=== PATIENT | female | born 1955 | race Caucasian/White ===

== ENCOUNTER 2024-05-07 11:50 | Outpatient (CLI) | payer MEDICARE, OTHER, SELFPAY ==
--- NOTE | ~2024-05-07 | XR_ITS ---
XR abdomen/kub 1V Ordering provider: Stephan Henson MD History: . BI kidney stone . Comparison: None. FINDINGS: BOWEL: Nonobstructive bowel gas pattern. ORGANOMEGALY: None. SIGNIFICANT PATHOLOGIC CALCIFICATIONS: Possible left kidney stones. Fecal material and gases are proj ected over the left kidney. OTHER: No free air is seen under the diaphragm. Postoperative changes in the lower lumbar area with spinal stimulator. Bilateral sacroiliacs. Pubic s ymphysitis. IMPRESSION: NO ACUTE ABDOMINAL FINDINGS. Possible left kidney stones. If clinically warranted noncontrast CT is advised. Reviewed, dictated and finalized at location A.
--- OUTSIDE RECORDS SUMMARY | 2024-05-07 13:44 | XMS_ITS | Encounter Summary ---
Author Organization [facility] Facility Care Team Providers Care Fish Icer Name Role Phone Art Schofield DO Primary Care Provider Tristen Bell MD Unavailable [phone] Art Schofield DO Primary Care Provider Stephan Henson MD Unavailable [phone] Simon Sampson DO Unavailable [phone] Encounter Details Date Type Department Care Team (Latest Contact Info) Description 03/13/2017 Orders Only [facility] CLINCONV ProviderArlene MD [address] [place], [place] [id number] Social History Tobacco Use Types Packs/Day Years Used Date Smoking Tobacco: Never Assessed Comments Unknown Sex and Gender Information Value Date Recorded Sex Assigned at Not on file Legal Sex Female 7:15 PM MAIL LIST PROCESSOR Gender Identity Female 12/01/2020 8:26 PM CDT Sexual Orientation Straight 12/01/2020 8: 26 PM CDT documented as of this encounter Plan of Treatment Not on file documented as of this encounter Procedures Procedure Name Priority Date/Time Associated Diagnosis Comments SCAN - LABS 03/13/2017 12:00 AM MAIL LIST PROCESSOR documented in this encounter Results * SCAN - LABS (03/13/2017 12:00 AM MAIL LIST PROCESSOR) Narrative 03/13/2017 12:00 AM MAIL LIST PROCESSOR Ordered by an unspecified provider. Historical Provider Final Res ult documented in this encounter Visit Diagnoses Not on filedocumented in this encounter Additional Health Concerns Infection Onset Date Last Indicated Resolved Time C. difficile Comment:Infection from 201510/13/2015 10/12/2015 04/10/2021 8 :04 AM MAIL LIST PROCESSOR documented as of this encounter Care Teams Fish Icer Relationship Specialty Start Date End Date Art Schofield DO PCP - General Family Practice 10/30/18 04/08/21 Art Schofield DO PCP - General Family Practice 04/09/21 Tristen Bell MD [address] [facility] [address] [address] [address] Supervisor Forming And Tempering Cardiology 10/31/18 [place] [address] [address] [place] [address] Consulting Physician Urology 05/07/23 Simon Sampson DO [address] [facility] [address] [address] [place] [address] Consulting Physician Orthopedic Surgery 05/14/23 documented as of this encounter
--- OUTSIDE RECORDS SUMMARY | 2024-05-07 13:44 | XMS_ITS | Encounter Summary ---
Author Organization [facility] Facility Care Team Providers Care County Attorney Name Role Phone Art Schofield DO Primary Care Provider Tristen Bell MD Unavailable [phone] Art Schofield DO Primary Care Provider Stephan Henson MD Unavailable [phone] Simon Sampson DO Unavailable [phone] Encounter Details Date Type Department Care Team (Latest Contact Info) Description 08/12/2017 Orders Only [facility] CLINCONV ProviderArlene MD [address] [place], [place] [id number] Social History Tobacco Use Types Packs/Day Years Used Date Smoking Tobacco: Never Assessed Comments Unknown Sex and Gender Information Value Date Recorded Sex Assigned at Not on file Legal Sex Female 7:15 PM SILK WASHING MACHINE OPERATOR Gender Identity Female 12/01/2020 8:26 PM CDT Sexual Orientation Straight 12/01/2020 8: 26 PM CDT documented as of this encounter Plan of Treatment Not on file documented as of this encounter Procedures Procedure Name Priority Date/Time Associated Diagnosis Comments PROCEDURE - RESULT 08/12/2017 12 :00 AM CDT documented in this encounter Results * PROCEDURE - RESULT (08/12/2017 12:00 AM CDT) Narrative 08/12/2017 12:00 AM CDT Ordered by an unspecified provider. Historical Provider Final Res ult documented in this encounter Visit Diagnoses Not on filedocumented in this encounter Additional Health Concerns Infection Onset Date Last Indicated Resolved Time C. difficile Comment:Infection from 201510/13/2015 10/12/2015 04/10/2021 8 :04 AM SILK WASHING MACHINE OPERATOR documented as of this encounter Care Teams County Attorney Relationship Specialty Start Date End Date Art Schofield DO PCP - General Family Practice 10/30/18 04/08/21 rAt Schofield DO PCP - General Family Practice 04/09/21 Tristen Bell MD [address] [facility] [address] [address] [address] Sawmill Tally Clerk Cardiology 10/31/18 [place] [address] [address] [place] [address] Consulting Physician Urology 05/07/23 Simon Sampson DO [address] [facility] [address] [address] [place] [address] Consulting Physician Orthopedic Surgery 05/14/23 documented as of this encounter
--- OUTSIDE RECORDS SUMMARY | 2024-05-07 13:44 | XMS_ITS | Encounter Summary ---
Author Organization [facility] Address [facility] [place] [address] Care Team Providers Care Enrollment Management Manager Name Role Phone Araceli Schofield Primary Care Provider [phone] Guillermo Jarvis MD Unavailable Arabella Alvarez MD, Ramon Unavailable [phone] Miri Howe PA-C Unavailable [phone] Encounter Details Date Type Department Care Team (Late st Contact Info) Description 03/02/2021 Prep for Procedure [facility] Pre-Admission Testing [place], [place] [id number] Americo Jarvis MD [address] [facility]. [place], [place] [id number] Social History Tobacco Use Types Packs/Day Years Used Date Smoking Tobacco: Never Smokeless Tobacco: Never Alcohol Use Standard Drinks/Week Comments No 0 (1 standard drink = 0.6 oz pur e alcohol) AUDIT-C Answer Date Recorded Frequency of Alcohol Consumption Never 04/22/2018 Average Number of Drinks Not on file 019 Frequency of Binge Drinking Not on file 03/29 PHQ-2 Answer Date Recorded PHQ-2 Score - If the patient scores above 3, please move on to questions 3-9 0 07/13/2020 Comments No Sex and Gender Information Value Date Recorded Sex Assigned at Female 03/13/2024 11:19 AM CRM SPECIALIST Legal Sex Female 5:37 PM CDT Gender Identity Female 03/01/2021 11:51 AM CRM SPECIALIST Sexual Orientation Straight 03/01/2021 11 :51 AM CRM SPECIALIST Occupation Industry Job Start Date Job End Date on disability Not on file Not on file Not on file COVID-19 Exposure Response Date Recorded In the last month, have you been in contact with someone who was confirmed or suspected to have Coronavirus / COVID-19? No / Unsure 03/02/2021 8:57 AM CRM SPECIALIST documented as of this encounter H&P Notes * Americo Jarvis MD - 03/02/2021 11:59 PM CST Attending Provider: No att. providers found PCP: ARACELI SCHOFIELD DO Juana Collier is an 65-year-old HPI: Pelvic organ prolapse. NO kati Past Medical History: Diagnosis Date ??? Angina at rest ([facility]) reports that this is not a current problem (recorded 2020) ??? Bursitis of both hips ??? C. difficile diarrhea 6 years ago (recorded 2020) ??? Coronary artery disease ??? DDD (degenerative disc disease), lumbar ??? Diverticulitis ??? Fibromyalgia ??? Heart palpitations (no issues with this for several years) ??? History of kidney stones ??? Hypertension ??? IBS (irritable bowel syndrome) ??? Reflux esophagitis ??? Ruptured disc, cervical ??? Spinal stenosis Allergies: Allergies Allergen Reactions ??? Darvon [Propoxyphene] Anaphylaxis ??? Penicillins Hives and Shortness of Breath Social History Tobacco Use ??? Smoking status: Never Smoker ??? Smokeless tobacco: Never Used Substance Use Topics ??? Alcohol use: No Past Surgical History: Procedure Laterality Date ??? CARPAL TUNNEL RELEASE Bilateral ??? COLONOSCOPY 2009 Dr Mauircio, history of polyps ??? COLONOSCOPY N/A 11/25/2019 colonoscopy with random colon biopsies AND CECAL POLYPECTOMYx2 VIA COLD JUMBO FORCEPS, ASCENDING COLON POLYP x2 VIA HOT SNARE, RECTAL POLYP performed by Tang Noland MD at [facility] ??? HC KIT BLADDER SLING/SUSPENSION ??? HEMORRHOIDECTOMY ??? HYSTERECTOMY ??? LUMBAR SPINAL FUSION CPG ??? NEUROSTIMULATOR PULSE GENERATOR ANALYSIS ??? SPINAL FUSION 2000 ??? SPINAL FUSION,ANT,EA ADNL LEVEL 2018 Family History Problem Relation Name Age of Onset ??? Breast Cancer Other 40 ??? Diabetes Mother ??? Cancer Father colon lung ??? Cancer Brother colon ??? Cancer Brother colon and lung ??? Cancer Brother bladder, prostate ca Travel Exposure: Current Outpatient Medications on File Prior to Visit Medication Sig ??? amlodipine 10 MG tablet Take 10 mg by mouth daily. ??? aspirin EC (ASPIRIN) 81 MG EC tablet Take 81 mg by mouth daily. ??? atorvastatin 40 MG tablet Take 40 mg by mouth daily. ??? azithromycin 250 MG tablet Take 2 tablets po on day 1 then take 1 tablet po daily on days 2-5 ??? carvedilol 25 MG tablet Take 25 mg by mouth 2 (two) times daily. ??? hydrochlorothiazide 25 MG tablet Take 25 mg by mouth daily. ??? LISINOPRIL 20 MG tablet TAKE 1 TABLET(20 MG) BY MOUTH DAILY ??? loratadine 10 MG tablet Take 10 mg by mouth daily. ??? melatonin 5 MG tablet Take 2 tablets by mouth nightly as needed. ??? MONTELUKAST 10 MG tablet TAKE 1 TABLET(10 MG) BY MOUTH EVERY NIGHT AT BEDTIME ??? omeprazole 40 MG capsule Take 40 mg by mouth daily. ??? potassium chloride CR 20 MEQ tablet Take 20 mEq by mouth daily. ??? TIZANIDINE 4 MG tablet TAKE 2 TABLETS BY MOUTH EVERY 8 HOURS ??? traMADol 50 MG tablet Indications: Chronic Pain TAKE 1 TABLET BY MOUTH THREE TIMES DAILY FOR CHRONIC PAIN (Patient taking differently: Take 50 mg by mouth 3 (three) times daily as needed for Pain. Indications: Chronic Pain TAKE 1 TABLET BY MOUTH THREE TIMES DAILY FOR CHRONIC PAIN) ??? Vitamin D, Cholecalciferol, 1000 units Cap Take by mouth daily. No current facility-administered medications on file prior to visit. There were no vitals taken for this visit. ROS neg Physical Exam [place] -2 NO cystocele Fixed urethra Rectocele just beyond introitus Assessment: Vag vault prolapse, rectocele Plan: sacdrospinous ligament fixation/rectocele repiar AMERICO JARVIS MD 02/25/2021 SPECIALIST documented in this encounter Plan of Treatment Not on file documented as of this encounter Results * (ABNORMAL) URINALYSIS WI REFLEX TO CULTURE (02/27/2021 10:56 AM CRM SPECIALIST) SPECIMEN TYPE URINE CLEAN CATCH 02/27/2021 10:56 AM [facility] COLOR (U) YELLOW 02/27/2021 12:28 PM [facility] TRANSPARENCY CLEAR 02/27/2021 12:28 PM [facility] SPECIFIC GRAVITY (U) 1.020 1.001 - 1.030 02/27/2021 12:28 PM [facility] U PH 6.5 5.0 - 9.0 02/27/2021 12:28 PM [facility] LEUKOCYTES (U) 25(A) NEGATIVE 02/27/2021 12:28 PM [facility] NITRITES NEGATIVE NEGATIVE 02/27/2021 12:28 PM [facility] PROTEIN (U) 10 <30 MG/DL 02/27/2021 12:28 PM [facility] URINE GLUCOSE NORMAL NORMAL MG/DL 02/27/2021 12:28 PM [facility] KETONES MG/DL (U) NEGATIVE NEGATIVE MG/DL 02/27/2021 12:28 PM [facility] UROBILINOGEN NORMAL NORMAL MG/DL 02/27/2021 12:28 PM [facility] BILIRUBIN (U) NEGATIVE NEGATIVE MG/DL 02/27/2021 12:28 PM [facility] BLOOD (U) NEGATIVE NEGATIVE 02/27/2021 12:28 PM [facility] CULTURE & SENSITIVITY INDICATED? SPECIMEN SETUP FOR CULTURE 02/27/2021 12:28 PM [facility] MUCUS MANY /LPF 02/27/2021 12:28 PM CRM SPECIALIST [facility] WBC/HPF 2 <6 /HPF 02/27/2021 12:28 PM CRM SPECIALIST [facility] RBC/HPF <1 <6 /HPF 02/27/2021 12:28 PM CRM SPECIALIST [facility] SQUAMOUS EPITHELIALS RARE /HPF 02/27/2021 12:28 PM CRM SPECIALIST [facility] URINE SPECIMEN OBTAINED BY CLEAN CATCH PROCEDURE / Unknown 02/27/2021 10:56 AM CRM SPECIALIST us Americo Jarvis MD URINE ORDERABLES Final Resul t [facility] [address] [place] [address], documented in this encounter Visit Diagnoses Diagnosis Preoperative testing- Primary Preoperative examination, unspecified Rectocele 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
--- OUTSIDE RECORDS SUMMARY | 2024-05-07 13:44 | XMS_ITS | Encounter Summary ---
Author Organization [facility] Facility Care Team Providers Care Electrical Mechanical Technician Name Role Phone Art Schofield DO Primary Care Provider Tristen Bell MD Unavailable [phone] Art Schofield DO Primary Care Provider Stephan Hneson MD Unavailable [phone] Simon Sampson DO Unavailable [phone] Encounter Details Date Type Department Care Team (Latest Contact Info) Description 03/10/2018 Orders Only [facility] CLINCONV ProviderArlene MD [address] [place], [place] [phone] Social History Tobacco Use Types Packs/Day Years Used Date Smoking Tobacco: Never Assessed Comments Unknown Sex and Gender Information Value Date Recorded Sex Assigned at Not on file Legal Sex Female 7:15 PM CNA PER DIEM Gender Identity Female 12/01/2020 8:26 PM CDT Sexual Orientation Straight 12/01/2020 8: 26 PM CDT documented as of this encounter Plan of Treatment Not on file documented as of this encounter Procedures Procedure Name Priority Date/Time Associated Diagnosis Comments SCAN - LABS 03/19/2018 12:00 AM CNA PER DIEM documented in this encounter Results * SCAN - LABS (03/19/2018 12:00 AM CNA PER DIEM) Narrative 03/19/2018 12:00 AM CNA PER DIEM Ordered by an unspecified provider. Historical Provider Final Res ult documented in this encounter Visit Diagnoses Not on filedocumented in this encounter Additional Health Concerns Infection Onset Date Last Indicated Resolved Time C. difficile Comment:Infection from 201510/13/2015 10/12/2015 04/10/2021 8 :04 AM CNA PER DIEM documented as of this encounter Care Teams Electrical Mechanical Technician Relationship Specialty Start Date End Date Art Schofield DO PCP - General Family Practice 10/30/18 04/08/21 Art Schofield DO PCP - General Family Practice 04/09/21 Tristen Bell MD [address] [facility] [address] [address] Chick Grader Cardiology 10/31/18 [place] [address] [address] [place] [address] Consulting Physician Urology 05/07/23 Simon Sampson DO [address] [facility] [address] [address] [place] [address] Consulting Physician Orthopedic Surgery 05/14/23 documented as of this encounter
--- OUTSIDE RECORDS SUMMARY | 2024-05-07 13:44 | XMS_ITS | Encounter Summary ---
Author Organization [facility] Facility Care Team Providers Care Community Health Nurse Staff Name Role Phone Art Schofield DO Primary Care Provider Tristen Bell MD Unavailable [phone] Art Schofield DO Primary Care Provider Stephan Henson MD Unavailable [phone] Simon Sampson DO Unavailable [phone] Encounter Details Date Type Department Care Team (Latest Contact Info) Description 04/10/2018 Orders Only [facility] CLINCONV ProviderArlene MD [address] [place], [place] [phone] Social History Tobacco Use Types Packs/Day Years Used Date Smoking Tobacco: Never Assessed Comments Unknown Sex and Gender Information Value Date Recorded Sex Assigned at Not on file Legal Sex Female 7:15 PM TEACHER PRESCHOOL Gender Identity Female 12/01/2020 8:26 PM CDT Sexual Orientation Straight 12/01/2020 8: 26 PM CDT documented as of this encounter Plan of Treatment Not on file documented as of this encounter Procedures Procedure Name Priority Date/Time Associated Diagnosis Comments SCAN - LABS 04/18/2018 12:00 AM TEACHER PRESCHOOL documented in this encounter Results * SCAN - LABS (04/18/2018 12:00 AM TEACHER PRESCHOOL) Narrative 04/18/2018 12:00 AM TEACHER PRESCHOOL Ordered by an unspecified provider. Historical Provider Final Res ult documented in this encounter Visit Diagnoses Not on filedocumented in this encounter Additional Health Concerns Infection Onset Date Last Indicated Resolved Time C. difficile Comment:Infection from 201510/13/2015 10/12/2015 04/10/2021 8 :04 AM TEACHER PRESCHOOL documented as of this encounter Care Teams Community Health Nurse Staff Relationship Specialty Start Date End Date Art Schofield DO PCP - General Family Practice 10/30/18 04/08/21 Art Schofield DO PCP - General Family Practice 04/09/21 Tristen Bell MD [address] [facility] [address] [address] Cheese Supervisor Cardiology 10/31/18 [place] [address] [place] [address] Consulting Physician Urology 05/07/23 Simon Sampson DO [address] [facility] [address] [address] [place] [address] Consulting Physician Orthopedic Surgery 05/14/23 documented as of this encounter
--- OUTSIDE RECORDS SUMMARY | 2024-05-07 13:44 | XMS_ITS | Encounter Summary ---
Author Organization [facility] Facility Care Team Providers Care Lug Breaker And Wire Puller Name Role Phone Art Schofield DO Primary Care Provider Tristen Bell MD Unavailable [phone] Art Schofield DO Primary Care Provider Stephan Henson MD Unavailable [phone] Simon Sampson DO Unavailable [phone] Encounter Details Date Type Department Care Team (Latest Contact Info) Description 03/19/2018 Orders Only [facility] CLINCONV ProviderArlene MD [address] [place], [place] [phone] Social History Tobacco Use Types Packs/Day Years Used Date Smoking Tobacco: Never Assessed Comments Unknown Sex and Gender Information Value Date Recorded Sex Assigned at Not on file Legal Sex Female 7:15 PM AZURE ARCHITECT Gender Identity Female 12/01/2020 8:26 PM CDT Sexual Orientation Straight 12/01/2020 8: 26 PM CDT documented as of this encounter Plan of Treatment Not on file documented as of this encounter Procedures Procedure Name Priority Date/Time Associated Diagnosis Comments SCAN - LABS 03/19/2018 12:00 AM AZURE ARCHITECT documented in this encounter Results * SCAN - LABS (03/19/2018 12:00 AM AZURE ARCHITECT) Narrative 03/19/2018 12:00 AM AZURE ARCHITECT Ordered by an unspecified provider. Historical Provider Final Res ult documented in this encounter Visit Diagnoses Not on filedocumented in this encounter Additional Health Concerns Infection Onset Date Last Indicated Resolved Time C. difficile Comment:Infection from 201510/13/2015 10/12/2015 04/10/2021 8 :04 AM AZURE ARCHITECT documented as of this encounter Care Teams Lug Breaker And Wire Puller Relationship Specialty Start Date End Date Art Schofield DO PCP - General Family Practice 10/30/18 04/08/21 Art Schofield DO PCP - General Family Practice 04/09/21 Tristen Bell MD [address] [facility] [address] [address] [address] Underwater Welder Cardiology 10/31/18 [place] [address] [place] [address] Consulting Physician Urology 05/07/23 Simon Sampson DO [address] [facility] [address] [address] [place] [address] Consulting Physician Orthopedic Surgery 05/14/23 documented as of this encounter
--- OUTSIDE RECORDS SUMMARY | 2024-05-07 13:44 | XMS_ITS | Encounter Summary ---
Author Organization [facility] Address [address] [place] [address] Care Team Providers Care Disk Grinder Name Role Phone Millard, Art Alegre DO Primary Care Provider [phone] Guillermo Henson MD Unavailable Arablela Alvarez MD, Ramon Unavailable [phone] Miri Howe PA-C Unavailable [phone] Encounter Details Date Type Department Care Team (Late st Contact Info) Description 11/22/2019 Prep for Procedure [facility] [place], [place] [address] Tang Noland MD [address] [id number] Social History Tobacco Use Types Packs/Day Years [...] please move on to questions 3-9 0 11/11/2019 Comments No Sex and Gender Information Value Date Recorded Sex Assigned at Female 03/13/2024 11:19 AM RETAIL LEADER Legal Sex Female 5:37 PM CDT Gender Identity Female 03/01/2021 11:51 AM RETAIL LEADER Sexual Orientation Straight 03/01/2021 11 :51 AM RETAIL LEADER Occupation Industry Job Start Date Job End Date on disability Not on file Not on file Not on file COVID-19 Exposure Response Date Recorded In the last month, have you been in contact with someone who was confirmed or suspected to have Coronavirus / COVID-19? No / Unsure 11/25/2019 12:59 PM CDT documented as of this encounter Plan of Treatment Not on file documented as of this encounter Results * PRE-SURGICAL/PRE-PROCEDURE CORONAVIRUS (COVID 19) (11/22/2019 10:17 AM CDT) CORONAVIRUS SARS COV 2 PCR (RESP) NOT DETECTED NOT DETECTED 11/23/2019 8:35 PM CDT [facility] Comment: A Not Detected (negative) test result for this test means that SARS- CoV-2 RNA was not present in the specimen above the limit of detection. A negative result does not rule out the possibility of COVID-19 and should not be used as the sole basis for treatment or patient management decisions. If COVID-19 is still suspected, based on exposure history together with other clinical findings, re-testing should be considered in consultation with public health authorities. Laboratory test results should always be considered in the context of clinical observations and epidemiological data in making a final diagnosis and patient management decisions. Please review the Fact Sheets and FDA authorized labeling available for health care providers and patients using the following websites: https://www.[employer].com/home/Covid-19/HCP/[facility]/fact- sheet.html https://www.[employer].com/home/Covid-19/Patients/ [facility]/fact-sheet.html This test has been authorized by the FDA under an Emergency Use Authorization (EUA) for use by authorized laboratories. Due to the current public health emergency, [facility] is receiving a high volume of samples from a wide variety of swabs and media for COVID-19 testing. In order to serve patients during this public health crisis, samples from appropriate clinical sources are being tested. Negative test results derived from specimens received in non-commercially manufactured viral collection and transport media, or in media and sample collection kits not yet authorized by FDA for COVID-19 testing should be cautiously evaluated and the patient potentially subjected to extra precautions such as additional clinical monitoring, including collection of an additional specimen. Methodology: Nucleic Acid Amplification Test (NAAT) includes PCR or TMA Additional information about COVID-19 can be found at the [facility] website: www.Educerus.KlikkaPromo/Covid19. Test performed at [facility] [address] [place] [address] Director: MARY BRITO DO,MPH FIRST TEST NO 11/22/2019 1:[address] [facility] EMPLOYED IN HEALTHCARE NO 11/22/2019 1:[address] [facility] SYMPTOMATIC DEFINED BY CDC NO 11/22/2019 1:[address] [facility] DATE OF SYMPTOM ONSET NO 11/22/2019 2:[address] [facility] HOSPITALIZATION STATUS NO 11/22/2019 1:[address] [facility] PATIENT IN ICU NO 11/22/2019 1:[address] [facility] RESIDENT OF CRITICAL ACCESS HOSPITAL CARE NO 11/22/2019 1:[address] [facility] UNKNOWN 11/22/2019 2:[address] [facility] PATIENT'S RACE WHITE OR 11/22/2019 1:[address] [facility] ETHNICITY NONHISPANIC 11/22/2019 1:[address] [facility] SOURCE (QST) NASOPHARYNGEAL SWAB 11/22/2019 1:[address] [facility] NASOPHARYNGEAL SWAB / Unknown 11/22/2019 10:17 AM CDT us Tang Noland MD MICROBIOLOGY - GENERAL DANIKA PANIAGUA Final Result [facility] [address] [place] [address], [facility] [address] [place] [address], documented in this encounter Visit Diagnoses Diagnosis Diarrhea- Primary documented in this encounter Additional Health Concerns Infection Onset Date Last Indicated Resolved Time COVID-19 Rule Out 11/22/2019 11/22/2019 11/23/2019 8:35 PM CDT COVID-19 Rule Out 04/25/2020 04/25/2020 04/26/2020 9:16 PM RETAIL LEADER documented as of this encounter Care Teams Disk Grinder Relationship Specialty Start Date End Date Art Schofield DO PCP - General 09/20/15 Guillermo Henson MD [address] [address] UROLOGY 08/01/22 Tristen Bell MD [address] [facility] [address] [address] CARDIOLOGY 08/01/22 Miri Howe, PA-C [address] [address] Referring Physician PHYSICIAN ENGINE DYNAMOMETER TESTER 11/09/22 documented as of this encounter
--- OUTSIDE RECORDS SUMMARY | 2024-05-07 13:44 | XMS_ITS | Encounter Summary ---
Author Organization [facility] Facility Care Team Providers Care Warehouse Inventory Clerk Name Role Phone Art Schofield DO Primary Care Provider Tristen Bell MD Unavailable [phone] Art Schofield DO Primary Care Provider Stephan Henson MD Unavailable [phone] Simon Sampson DO Unavailable [phone] Encounter Details Date Type Department Care Team (Latest Contact Info) Description 04/25/2018 Orders Only [facility] CLINCONV ProviderArlene MD [address] [place], [place] [id number] Social History Tobacco Use Types Packs/Day Years Used Date Smoking Tobacco: Never Assessed Comments Unknown Sex and Gender Information Value Date Recorded Sex Assigned at Not on file Legal Sex Female 7:15 PM ELECTRICIAN MAINTENANCE Gender Identity Female 12/01/2020 8:26 PM CDT Sexual Orientation Straight 12/01/2020 8: 26 PM CDT documented as of this encounter Plan of Treatment Not on file documented as of this encounter Procedures Procedure Name Priority Date/Time Associated Diagnosis Comments SCAN - LABS 04/25/2018 12:00 AM ELECTRICIAN MAINTENANCE documented in this encounter Results * SCAN - LABS (04/25/2018 12:00 AM ELECTRICIAN MAINTENANCE) Narrative 04/25/2018 12:00 AM ELECTRICIAN MAINTENANCE Ordered by an unspecified provider. Historical Provider Final Res ult documented in this encounter Visit Diagnoses Not on filedocumented in this encounter Additional Health Concerns Infection Onset Date Last Indicated Resolved Time C. difficile Comment:Infection from 201510/13/2015 10/12/2015 04/10/2021 8 :04 AM ELECTRICIAN MAINTENANCE documented as of this encounter Care Teams Warehouse Inventory Clerk Relationship Specialty Start Date End Date Art Schofield DO PCP - General Family Practice 10/30/18 04/08/21 Art Schofield DO PCP - General Family Practice 04/09/21 Tristen Bell MD [address] [facility] [address] [place] [address] [address] Stage Director Cardiology 10/31/18 [place] [address] [place] [address] [place] [address] Consulting Physician Urology 05/07/23 Simon Sampson DO [address] [facility] [address] [place] [address] [place] [address] Consulting Physician Orthopedic Surgery 05/14/23 documented as of this encounter
--- OUTSIDE RECORDS SUMMARY | 2024-05-07 13:44 | XMS_ITS | Encounter Summary ---
Author Organization [facility] Facility Care Team Providers Care Seat Mender Name Role Phone Art Schofield DO Primary Care Provider Tristen Bell MD Unavailable [phone] Art Schofield DO Primary Care Provider Stephan Henson MD Unavailable [phone] Simon Sampson DO Unavailable Encounter Details Date Type Department Care Team (Latest Contact Info) Description 09/18/2017 Orders Only [facility] CLINCONV ProviderArlene MD [address] [place], [place] [id number] Social History Tobacco Use Types Packs/Day Years Used Date Smoking Tobacco: Never Assessed Comments Unknown Sex and Gender Information Value Date Recorded Sex Assigned at Not on file Legal Sex Female 7:15 PM LOCOMOTIVE MECHANIC APPRENTICE Gender Identity Female 12/01/2020 8:26 PM CDT Sexual Orientation Straight 12/01/2020 8: 26 PM CDT documented as of this encounter Plan of Treatment Not on file documented as of this encounter Procedures Procedure Name Priority Date/Time Associated Diagnosis Comments SCAN - LABS 09/30/2017 12:00 AM CDT documented in this encounter Results * SCAN - LABS (09/30/2017 12:00 AM CDT) Narrative 09/30/2017 12:00 AM CDT Ordered by an unspecified provider. Historical Provider Final Res ult documented in this encounter Visit Diagnoses Not on filedocumented in this encounter Additional Health Concerns Infection Onset Date Last Indicated Resolved Time C. difficile Comment:Infection from 201510/13/2015 10/12/2015 04/10/2021 8 :04 AM LOCOMOTIVE MECHANIC APPRENTICE documented as of this encounter Care Teams Seat Mender Relationship Specialty Start Date End Date Art Schofield DO PCP - General Family Practice 10/30/18 04/08/21 Art Schofield DO PCP - General Family Practice 04/09/21 Tristen Bell MD [address] [facility] [address] [place] [address] [address] Front End Web Designer Cardiology 10/31/18 [place] [address] [place] [address] [place] [address] Consulting Physician Urology 05/07/23 Simon Sampson DO [address] [facility] [address] [address] [place] [address] Consulting Physician Orthopedic Surgery 05/14/23 documented as of this encounter
--- OUTSIDE RECORDS SUMMARY | 2024-05-07 13:44 | XMS_ITS | Encounter Summary ---
Author Organization [facility] Facility Care Team Providers Care Handle Sander Operator Name Role Phone Art Schofield DO Primary Care Provider Tristen Bell MD Unavailable [phone] Art Schofield DO Primary Care Provider Stephan Henson MD Unavailable [phone] Simon Sampson DO Unavailable [phone] Encounter Details Date Type Department Care Team (Latest Contact Info) Description 09/30/2017 Orders Only [facility] CLINCONV ProviderArlene MD [address] [place], [place] [id number] Social History Tobacco Use Types Packs/Day Years Used Date Smoking Tobacco: Never Assessed Comments Unknown Sex and Gender Information Value Date Recorded Sex Assigned at Not on file Legal Sex Female 7:15 PM BALLOON SANDER Gender Identity Female 12/01/2020 8:26 PM CDT [...] from 201510/13/2015 10/12/2015 04/10/2021 8 :04 AM BALLOON SANDER documented as of this encounter Care Teams Handle Sander Operator Relationship Specialty Start Date End Date Art Schofield DO PCP - General Family Practice 10/30/18 04/08/21 Art Schofield DO PCP - General Family Practice 04/09/21 Tristen Bell MD [address] [facility] [address] [place] [address] [address] Systems Developer Cardiology 10/31/18 [place] [address] [place] [address] [place] [address] Consulting Physician Urology 05/07/23 Simon Sampson DO [address] [facility] [address] [place] [address] [place] [address] Consulting Physician Orthopedic Surgery 05/14/23 documented as of this encounter
--- OUTSIDE RECORDS SUMMARY | 2024-05-07 13:45 | XMS_ITS | Clinical Summary ---
Author Organization [facility] Address [address] [place] [address] Care Team Providers Care Parts Administrator Name Role Phone Araceli Schofield Primary Care Provider Guillermo Henson MD Unavailable [phone] Arabella Alvarez MD, Ramon Unavailable [phone] Miri Howe PA-C Unavailable [phone] Allergies Active Allergy Reactions Criticality Noted Date Comments Propoxyphene Anaphylaxis High 04/22/2018 Penicillins Hives,Shortness of Breath High 9 Medications atorvastatin 40 MG tablet Take 1 tablet (40 mg total) by mouth daily. 9 Active carvedilol 25 MG tablet Take 1 tablet (25 mg total) by mouth 2 (two) times daily. 9 Active aspirin EC 81 MG tablet Take 1 tablet (81 mg total) by mouth daily. Active melatonin 5 MG tablet Take 2 tablets (10 mg total) by mouth nightly as needed. Active omeprazole 40 MG capsule Take 1 capsule (40 mg total) by mouth daily. 1 Active Probiotic Product (PROBIOTIC ADVANCED) Cap Active amLODIPine 10 MG tablet Take 1 tablet (10 mg total) by mouth daily. 2 Active cyclobenzaprine (FLEXERIL) 10 MG tablet Take 1 tablet (10 mg total) by mouth 3 (three) times daily. 3 Active clopidogrel (PLAVIX) 75 MG tabletIndicatio ns:Hx of transient ischemic attack (TIA) TAKE 1 TABLET(75 MG) BY MOUTH DAILY 90 tablet 1 3 Active ondansetron (ZOFRAN) 4 MG tabletIndicatio ns:Dysuria Take 1 tablet (4 mg total) by mouth every 8 (eight) hours as needed for Nausea. 20 tablet 3 Active traMADol (ULTRAM) 50 MG tabletIndicatio ns:Chronic Pain Indications: Chronic Pain TAKE 1 TABLET BY MOUTH THREE TIMES DAILY FOR CHRONIC PAIN 90 tablet 3 Active diazePAM (VALIUM) 2 MG tabletIndicatio ns:Claustrophob ia take 1 tablet by mouth 1 hour prior to MRI and repeat at time of the procedure 2 tablet 3 Active Active Problems Problem Noted Date Diagnosed Date Morbid obesity 07/24/2022 Other fatigue 07/17/2021 Hx of transient ischemic attack (TIA) 04/25/2021 Greater trochanteric bursitis of both hips 12/24 Herpes zoster 05/05/2018 Myofascial pain 04/22/2018 Overview (04/22/2018): Added automatically from request for surgery [id number] KALEB inhibitor intolerance 03/27/2018 Overview (11/11/2019): Overview: Secondary to cough Heart murmur 08/12/2017 Overview (11/11/2019): Overview: Patient had faint systolic murmur. Echo done on 08/05/2017 showed a normal left systolic function no major valvular disease noted. Abnormal EKG 08/12/2017 Overview (11/11/2019): Overview: EKG done on 08/12/2017 showed sinus rhythm with poor progression. Left anterior fascicular block noted. Nonspecific intraventricular conduction delay noted. Post-menopause 03/18/2017 Essential hypertension 05/15/2016 Non-occlusive coronary artery disease 05/15/2016 Overview (11/11/2019): Overview: Cardiac catheterization in 2009 at [facility] showed 10-20% stenosis involving the mid LAD Metabolic syndrome 05/15/2016 Dyslipidemia 05/07/2016 ROZINA (obstructive sleep apnea) 01/30/2016 Fatigue 02/10/2015 Pancreatic insufficiency (HHS/HCC) 09/01/2014 Diverticulitis of colon 03/27/2013 Spinal stenosis 03/27/2013 Allergic rhinitis 03/20/2013 Chronic lower back pain 03/20/2013 Esophageal reflux 03/20/2013 Fibromyalgia 03/20/2013 Impaired fasting glucose 03/20/2013 Irritable bowel syndrome 03/20/2013 Lumbar degenerative disc disease 03/20/2013 Myocardial ischemia 03/20/2013 Resolved Problems Problem Noted Date Diagnosed Date Resolved Date Health maintenance examination 11/11/2019 11/16/2019 Screening mammogram for high-risk patient 09/01/2014 11/06/2019 Encounters Date Type Department Care Team Description 04/01/2024 12:13 PM INDUSTRIAL MECHANIC - 04/01/2024 11:59 PM INDUSTRIAL MECHANIC Hospital Encounter [facility] [place] [address] Tristen Bell MD Discharge Disposition: Home or Self Care (Routine Discharge) 04/01/2024 Orders Only [facility] [place] [address] Tristen Bell MD 04/01/2024 Travel 03/13/2024 11:22 AM INDUSTRIAL MECHANIC - 03/13/2024 11:59 PM INDUSTRIAL MECHANIC Hospital Encounter [facility] [place] [address] Tristen Bell MD Discharge Disposition: Home or Self Care (Routine Discharge) 03/13/2024 Orders Only [facility] [place] [address] Tristen Bell MD 03/13/2024 Travel from Last 3 Months Immunizations Name Administration Dates Next Due Arexvy Respiratory Syncytial Virus (RSV, adjuvanted) 0.5 mL, PF 02/20/2023 Fluad influenza vaccine, Johnson drivalent (aIIV4), Inactivated, adjuvanted, preservative free, 0.5 mL,IM use 02/20/2023,01/01/2022 Flublok (Quadrivalent) 11/11/2019 Fluzone 6 Months+ (5.0 mL Mu lti Dose Vial) 11/30/2020 Influenza (Generic) 10/20/2016, 6,11/19/2014,2013,12/12/2012,11/30/2011 Influenza Adult (Generic) 01/07/2019,10/19/2016 PFIZER COVID-19 (ORIGINAL FORMULATION, PURPLE CAP) mRNA, LNP-S, PF, 30 MCG/0.3 ML DOSE 05/27/2021,05/14/2020 Pneumococcal (Pneumovax 23) 11/11/2019 Pneumococcal (Prevnar 20) 01/01/2022 Shingrix 11/03/2018,09/01/2018 Tdap (Generic) 11/28/2010 Family History Medical History Relation Comments Cancer Brother 1 colon Cancer Brother 2 colon and lung Cancer Brother 3 bladder, prostat e ca Cancer Father colon lung Diabetes Mother Breast Cancer Other Relation Status Comments Brother 1 Brother 2 Alive Brother 3 Alive Father Mother Other Social History Tobacco Use Types Packs/Day Years Used Date Smoking Tobacco: Never Smokeless Tobacco: Never Tobacco Cessation:Counseling Given: Not Answered Alcohol Use Standard Drinks/Week Comments No 0 (1 standard drink = 0.6 oz pur e alcohol) AUDIT-C Answer Date Recorded Frequency of Alcohol Consumption Never 04/22/2018 Average Number of Drinks Not on file 019 Frequency of Binge Drinking Not on file 03/29 PHQ-2 Answer Date Recorded Patient Health Questionnaire-2 Score 0 07/24/2022 Comments No Sex and Gender Information Value Date Recorded Sex Assigned at Female 03/13/2024 11:19 AM INDUSTRIAL MECHANIC Legal Sex Female 5:37 PM CDT Gender Identity Female 03/01/2021 11:51 AM INDUSTRIAL MECHANIC Sexual Orientation Straight 03/01/2021 11 :51 AM INDUSTRIAL MECHANIC Occupation Industry Job Start Date Job End Date on disability Not on file Not on file Not on file Last Filed Vital Signs Vital Sign Reading Time Taken Comments Blood Pressure 143/81 12/25/2022 2:35 PM CDT Pulse 72 12/25/2022 2:15 PM CDT Temperature 36.2 C (97.1 F) 12/25/2022 2:15 PM CDT Respiratory Rate 15 12/25/2022 2:15 PM CDT Oxygen Saturation 98% 12/25/2022 2:35 PM CDT Inhaled Oxygen Concentration - - Weight 99.8 kg (220 lb) 12/12/2022 3:33 PM CDT Height 167.6 cm (5' 6 ) 07/24/2022 10:01 AM CDT Body Mass Index 35.51 07/24/2022 10:01 AM CDT Plan of Treatment Health Maintenance Due Date Last Done Comments Annual Medicare Wellness Visit 07/26/2023 07/24/2022 COVID-19 Vaccine ( season) 2023 02/20/2023, 05/27/2021, 10/10/2020, Additional history exists Mammogram Screening 12/10/2024 12/10/2022, 12/05/2021, 11/28/2020, Additional history exists Colorectal Cancer Screening Colonoscopy (10 Years) 12/25/2032 12/25/2022, 12/10/2019, 11/25/2019, Additional history exists DTaP, Tdap and Td Vaccines (3 - Td or Tdap) 11/24/2033 11/25/2023, 11/28/2010 Zoster Vaccines Completed 11/03/2018, 09/01/2018 Pneumococcal Vaccine: 65+ Years Completed 01/01/2022, 11/11/2019 RSV Immunization or 60+ Years Completed 02/20/2023 Dexa Scan (General) Completed 10/24/2023, 10/24/2023, 03/25/2017, Additional history exists Influenza Adult Completed 11/25/2023, 01/26, 01/01/2022, Additional history exists Hepatitis C Completed 12/12/2023, 12/12/2023 Meningococcal B Vaccine Aged Out No l onger eligible based on patient's age to complete this topic Meningococcal Vaccine Aged Out No yazmin rolando eligible based on patient's age to complete this topic RSV Immunizations Under 20 Months Aged Out No longer eligible based on patient's age to complete this topic Medical Devices Implanted Type Area Nutrition Services Worker Device Identifier Shelf Expiration Date Model / Serial / Lot Nerve Stimulator Stimulator Implant Dorsal Column Stimulator Description:Pt has Cervical Titanium plate Lumbar Fusion with hardware Neuro Stimulator-Low back Procedures Procedure Name Priority Date/Time Associated Diagnosis Comments LIPID PANEL Routine 04/01/2024 12:19 PM INDUSTRIAL MECHANIC Non-occlusive coronary artery disease Mixed hyperlipidemia Essential hypertension, benign Ectopic beats COMPREHENSIVE METABOLIC PANEL Routine 03/13/2024 11:30 AM INDUSTRIAL MECHANIC Non-occlusive coronary artery disease Mixed hyperlipidemia Essential hypertension, benign MG SCREENING W SAYDA WILLIAM DIGI Routine 12/10/2022 11:42 AM CDT Encounter for screening mammogram for breast cancer COLONOSCOPY GENERIC (SCAN ORDER) Routine 12/10/2019 BONE DENSITY/DEXA Routine 03/25/2017 1:0 2 PM INDUSTRIAL MECHANIC Post-menopausal Chronic lower back pain Spinal stenosis Lumbar degenerative disc disease from Last 3 Months or Most Recently Relevant to Health Maintenance Results * LIPID PANEL (04/01/2024 12:19 PM INDUSTRIAL MECHANIC) CHOLESTEROL 124 <200 MG/DL 04/01/2024 1:27 PM [facility] TRIGLYCERIDES 99 <150 MG/DL 04/01/2024 1:27 PM [facility] HDL 45 >40.0 MG/DL 04/01/2024 1:27 PM [facility] LDL (CALCULATED) 59 <100 MG/DL 04/01/19 25 1:27 PM [facility] NON HDL CHOLESTEROL 79 <130 MG/DL 04/01 1:27 PM [facility] CHOL/HDL RATIO 2.8 0.0 - 4.5 04/01/2024 1:27 PM [facility] VLDL CALCULATION 20 5 - 55 MG/DL 04/01/2024 1:27 PM [facility] LIPID INTERPRETATION 04/01/2024 1:27 PM [facility] Comment: NIH CONCENSUS REPORT RECOMMENDATIONS: ADULT CHILD LOW RISK: CHOLESTEROL <200 <170 TRIGLYCERIDE <150 --- HDL >=60 --- LDL <100 <110 BORDERLINE: CHOLESTEROL 200-239 170-199 TRIGLYCERIDE 150-199 --- HDL 40-59 --- LDL 100-159 110-129 HIGH RISK: CHOLESTEROL >=240 >=200 TRIGLYCERIDE >=200 --- HDL <40 --- LDL >=160 >=130 04/01/2024 12:1 9 PM INDUSTRIAL MECHANIC us Tristen Alvarez MD LABORATORY Final Resul t [facility] [address] [place] [address], [place] [phone] * (ABNORMAL) COMPREHENSIVE METABOLIC PANEL (03/13/2024 11:30 AM INDUSTRIAL MECHANIC) GLUCOSE 150(H) 70 - 99 MG/DL 03/13/2024 12:19 PM [facility] BUN 14 7 - 18 MG/DL 03/13/2024 12:19 PM [facility] CREATININE S/P/B 0.90 0.55 - 1.02 MG/DL 03/13/2024 12:19 PM [facility] SODIUM S/P/B 137 136 - 145 MMOL/L 03/13/2024 12:19 PM [facility] POTASSIUM S/P/B 4.0 3.5 - 5.1 MMOL/L 03/13/2024 12:19 PM [facility] CHLORIDE S/P/B 108 97 - 115 MMOL/L 03/13/2024 12:19 PM [facility] CO2 24.7 21 - 32 MMOL/L 03/13/2024 12:19 PM [facility] CALCIUM S/P/B 9.2 8.5 - 10.1 MG/DL 03/13/2024 12:19 PM INDUSTRIAL MECHANIC [facility] BILIRUBIN TOTAL S/P/B 0.9 0.2 - 1.2 MG/DL 03/13/2024 12:19 PM [facility] Comment: THIS ASSAY IS NOT RECOMMENDED FOR PATIENTS UNDERGOING TREATMENT WITH ELTROMBOPAG DUE TO THE POTENTIAL FOR FALSELY ELEVATED RESULTS. TOTAL PROTEIN S/P/B 7.4 6.4 - 8.2 G/DL 03/13/2024 12:19 PM [facility] ALBUMIN S/P/B 3.7 3.4 - 5.0 G/DL 03/13/2024 12:19 PM [facility] AST 15 15 - 37 U/L 03/13/2024 12:19 PM [facility] ALT 22 14 - 55 U/L 03/13/2024 12:19 PM [facility] ALKALINE PHOSPHATASE S/P/B 122 50 - 136 U/L 03/13/2024 12:19 PM [facility] ANION GAP 4.3 2 - 10 MMOL/L 03/13/2024 12:19 PM [facility] BUN CREATININE RATIO 15.6 6 - 26 03/13/2024 12:19 PM [facility] A/G RATIO 1.0 1.0 - 2.0 RATIO 03/13/2024 12:19 PM [facility] GFR ESTIMATE 70(L) >90 ML/MIN/1.7 3 M2 03/13/2024 12:19 PM [facility] Comment: NOTE: eGFR is not calculated for patients <18 years of age or gender unknown. This is an estimated GFR calculation using the new CKD EPI creatinine equation without race and so does not require a correction factor for race. This estimated GFR should not be used for calculating drug doses. 03/13/2024 11:3 0 AM INDUSTRIAL MECHANIC us Tristen Alvarez MD LABORATORY Final Resul t [facility] [address] [place] [address], * MG SCREENING W SAYDA WILLIAM DIGI (12/10/2022 11:42 AM CDT) Anatomical Region Laterality Modality Breast Bilateral Mammography 12/10/2022 3:08 PM CDT Narrative 12/10/2022 3:08 PM CDT Examination: Digital screening mammogram with CAD. Clinical history: Asymptomatic patient presents for routine screening. Comparison: 12/05/2021, 11/28/2020, 10/21/2019, 10/09/2018. Technique: Bilateral digital mammograms. The exam was interpreted with the use of a computer-aided detection (CAD) system. Additional 3-D tomosynthesis images were acquired. Tissue density: The breast tissue contains scattered fibroglandular densities. Findings: The breast tissue contains scattered fibroglandular densities. Benign-appearing calcification noted. Benign-appearing intramammary lymph node on the right again evident. No suspicious mass, microcalcification or area of architectural distortion can be identified. From a mammographic standpoint, routine followup in one year would seem adequate. IMPRESSION: No suspicious change since the previous exams. Recommendation: 1: Routine Screening Bilateral in 1 Year Assessment: ACR BI-RADS 2 - BENIGN FINDING(S) Ordered By: ARACELI SCHOFIELD Interpreted By: Juan Daniel Barron MD, 12/10/2022 3:08 PM us Araceli Schofield DO MAMMO Final Resul t * COLONOSCOPY (12/10/2019) us Documents Scanned SCANNING Edited Result - Final [facility] * BONE DENSITY/DEXA (03/25/2017 1:02 PM INDUSTRIAL MECHANIC) Anatomical Region Laterality Modality Bone Mammography 03/25/2017 2:12 PM INDUSTRIAL MECHANIC Impressions 03/25/2017 2:13 PM INDUSTRIAL MECHANIC =====IMPRESSION:===== Lumbar spine bone density: Not performed Femur bone density: Normal All treatment decisions require clinical judgment and considerations of individual patient factors, including patient preferences, comorbidities, previous drug use and risk factors not catheter. In the FRAX model. ( Frailty, falls, vitamin D deficiency, increased bone turnover, interval significant decline in BMD ) Narrative 03/25/2017 2:13 PM INDUSTRIAL MECHANIC Examination: Bone Density Axial and proximal Femurs Exam date/time: 03/25/2017 1:01 PM Reason For Exam: Postmenopausal Comparison: None Findings: DEXA bone densitometry The bone mineral density (BMD) was determined by dual-energy x-ray absorptiometry, the results are as follows: AP Lumbar Spine: not performed secondary to back surgery Bilateral femoral neck mean: BMD Patient (GM/SQCM): 0.760 T-Score (Standard deviations from young adult peak bone density): -0.8 Bilateral femoral femur mean: BMD Patient (GM/SQCM): 0.945 T-Score (Standard deviations from young adult peak bone density): Zero Procedure Note Quirino Castro MD - 03/25/2017 Examination: Bone Density Axial and proximal Femurs Exam date/time: 03/25/2017 1:01 PM Reason For Exam: Postmenopausal Comparison: None Findings: DEXA bone densitometry The bone mineral density (BMD) was determined by dual-energy x-ray absorptiometry, the results are as follows: AP Lumbar Spine: not performed secondary to back surgery Bilateral femoral neck mean: BMD Patient (GM/SQCM): 0.760 T-Score (Standard deviations from young adult peak bone density): -0.8 Bilateral femoral femur mean: BMD Patient (GM/SQCM): 0.945 T-Score (Standard deviations from young adult peak bone density): Zero =====IMPRESSION:===== Lumbar spine bone density: Not performed Femur bone density: Normal All treatment decisions require clinical judgment and considerations of individual patient factors, including patient preferences,comorbidities, previous drug use and risk factors not catheter. In the FRAX model. ( Frailty, falls, vitamin D deficiency, increased bone turnover, interval significant decline in BMD ) Araceli Schofield DO DEXA Final Resul t from Last 3 Months or Most Recently Relevant to Health Maintenance Insurance [employer] Care Teams Parts Administrator Relationship Specialty Start Date End Date Araceli Schofield DO PCP - General 09/20/15 Guillermo Henson MD [address] [address] UROLOGY 08/01/22 Tristen Bell MD [address] [facility] [address] [address] CARDIOLOGY 08/01/22 Miri Howe, PAMarilynC [address] [id number] Referring Physician PHYSICIAN COOK HELPER DESSERT 11/09/22
--- OUTSIDE RECORDS SUMMARY | 2024-05-07 13:45 | XMS_ITS | Clinical Summary ---
Author Organization [facility] Address [address] [place] [address] Care Team Providers Care Bench Worker Helper Name Role Phone Tristen Bell MD Unavailable [phone] Art Schofield DO Primary Care Provider Stephna Henson MD Unavailable [phone] Simon Sampson DO Unavailable [phone] Allergies Active Allergy Reactions Criticality Noted Date Comments Penicillins Rash Medium Reaction: RASH; patient states she has taken amoxicillin recently and had no reaction. Medications omeprazole (PriLOSEC) 40 mg capsule 1 capsule (40 mg total) daily Active aspirin 81 mg enteric coated tablet Take 1 tablet (81 mg total) by mouth daily Active cyclobenzaprin e (FLEXERIL) 10 mg tablet 4 Active vibegron (Gemtesa) 75 mg tablet Take by mouth Active estradioL (ESTRACE) 0.01 % (0.1 mg/gram) vaginal cream 4 Active methenamine (HIPREX) 1 gram tablet 4 Active traMADoL (ULTRAM) 50 mg tablet TAKE 1 TABLET BY MOUTH THREE TIMES DAILY NEEDED 180 tablet 1 4 Active carvediloL (COREG) 25 mg tablet TAKE 1 TABLET(25 MG) BY MOUTH TWICE DAILY 180 tablet 1 4 Active amLODIPine (NORVASC) 10 mg tablet TAKE 1 TABLET(10 MG) BY MOUTH DAILY 90 tablet 1 4 Active atorvastatin (LIPITOR) 40 mg tablet TAKE 1 TABLET(40 MG) BY MOUTH DAILY 90 tablet 2 5 Active clopidogreL (PLAVIX) 75 mg tablet TAKE 1 TABLET(75 MG) BY MOUTH DAILY 90 tablet 3 5 Active lisinopriL (PRINIVIL,ZEST RIL) 10 mg tablet TAKE 1 TABLET(10 MG) BY MOUTH DAILY 90 tablet 1 5 Active lisinopriL (PRINIVIL,ZEST RIL) 10 mg tablet TAKE 1 TABLET(10 MG) BY MOUTH DAILY 90 tablet 1 4 04/30/19 25 Discontinued Active Problems Problem Noted Date Diagnosed Date Morbid obesity 09/16/2023 Overview (09/16/2023): BMI 36 with hypertension and impaired fasting glucose Weight management discussed Acute medial meniscus tear of right knee 024 S/P arthroscopic partial medial meniscectomy of left knee 05/29/2023 Assessment & Plan (05/29/2023 9:53 AM CDT): Patient is doing well overall. No evidence of infection of the surgical sites. Sutures were removed today in clinic and Steri-Strips applied. Patient will continue to keep the surgical site clean and dry for 1 more week and then may start getting it wet in the shower. Signs of infection were reviewed with the patient including increased swelling and erythema along the surgical site, purulent drainage from the surgical site, fever, chills and they will notify us they develop any of these signs. She will follow up in 4 weeks for x-rays and further evaluation with Dr. Sampson. She is interested in scheduling her right knee for the same surgery in the near future. She expressed understanding and agreement with the plan. Acute medial meniscus tear of left knee 05/06/19 24 Essential hypertension, benign 06/09/2021 Overview (09/16/2023): Chronic, stable condition on Norvasc, Coreg, and lisinopril Continue same medications Bifascicular bundle branch block 04/11/2021 Mixed hyperlipidemia 12/02/2020 Overview (09/16/2023): Chronic, stable condition on statin Continue same medications Herpes zoster 05/05/2018 Myofascial pain 04/22/2018 Overview (01/16/2023): Added automatically from request for surgery [id number] KALEB inhibitor intolerance 03/27/2018 Overview (11/04/2018): Secondary to cough Heart murmur 08/12/2017 Overview (11/04/2018): Patient had faint systolic murmur. Echo done on 08/05/2017 showed a normal left systolic function no major valvular disease noted. Routine physical examination 08/12/2017 Overview (09/16/2023): July 24, 2022 September 16, 2023 (AWV) Post-menopause 03/18/2017 Non-occlusive coronary artery disease 05/15/2016 Overview (09/16/2023): Stress test done on 08/08/2017 showed no ischemia by Blanca scan Myoview stress test Cardiac catheterization in 2009 at [facility] showed 10-20% stenosis involving the mid LAD She is on a beta-junior and statin Routine follow up with Cardiology Continue same medications Metabolic syndrome 05/15/2016 ROZINA (obstructive sleep apnea) 01/30/2016 Overview (09/16/2023): Sleep apnea stable Continue nightly CPAP use Pancreatic insufficiency 09/01/2014 Diverticulitis of colon 03/27/2013 Spinal stenosis 03/27/2013 Overview (09/16/2023): Mild chronic back pain Continue pain med p.r.n. Allergic rhinitis 03/20/2013 GERD without esophagitis 03/20/2013 Overview (09/16/2023): Overall stable on PPI Continue same medication Impaired fasting glucose 03/20/2013 Overview (09/16/2023): Chronic and overall stable not requiring medication A1c 6.6 in June 2022 Continue weight management and diet modifications Irritable bowel syndrome 03/20/2013 Lumbar degenerative disc disease 03/20/2013 Overview (09/16/2023): Lumbar degenerative disease Mild chronic pain Continue pain med p.r.n. Other chronic pain 03/20/2013 Fibromyalgia 03/20/2013 Resolved Problems Problem Noted Date Diagnosed Date Resolved Date Abnormal stress test 07/21/2021 024 Ectopic beats 06/09/2021 04/15/2023 TIA (transient ischemic attack) 04/09/2021 09/16/2023 Abnormal EKG 08/12/2017 04/15/2023 Overview (11/04/2018): EKG done on 08/12/2017 showed sinus rhythm with poor progression. Left anterior fascicular block noted. Nonspecific intraventricular conduction delay noted. Other chronic pain 05/21/2016 Chest pain, atypical 05/15/2016 024 Essential hypertension 05/15/201606/09 Morbid obesity 05/15/2016 09/16/2023 Overview (04/15/2023): BMI 37 with hypertension, hyperlipidemia, impaired fasting glucose Weight management would help medical conditions Dyslipidemia 05/07/2016 06/09/2021 Fatigue 02/10/2015 04/15/2023 Myocardial ischemia 03/20/2013 04/15/19 24 Acute cystitis with hematuria 04/15/2023 Palpitations 09/16/2023 Encounters Date Type Department Care Team Description 04/29/2024 Results Follow-Up [facility] Cardiology [address] [place] [phone] Tristen Bell MD 04/08/2024 Orders Only [facility] Cardiology [address] [place] [phone] ProviderArlene MD 03/30/2024 11:03 AM DBA MANAGER - 03/30/2024 11:59 PM DBA MANAGER Hospital Encounter [facility] OP Cardiac Testing [address] [place] [id number] Non-occlusive coronary artery disease; Ectopic beats; Ectopic atrial beats Discharge Disposition: Discharge to home or self care 03/18/2024 3:15 PM DBA MANAGER Office Visit [facility] Cardiology [address] [place] [id number] Tristen Bell MD Non-occlusive coronary artery disease (Primary Dx); Mixed hyperlipidemia; Essential hypertension, benign; Ectopic beats; Ectopic atrial beats from Last 3 Months Immunizations Immunization Administration Dates Next Due Influenza, Quad, Adjuvantate d, Intramuscular 02/20/2023,01/01/2022 Influenza, Quadrivalent, Rec ombinant, Egg Free, Preservative Free, Intramuscular 11/11/2019 Influenza, Quadrivalent, Spl it, Intramuscular 11/30/2020 Influenza, Quadrivalent, Spl it, Preservative Free, Intramuscular 01/07/2019,10/19/2016 Influenza, Trivalent, High D ose, Split, Preservative Free, Intramuscular 11/25/2023 Influenza, Trivalent, IM (MDV) 10/09/2016 Influenza, Unspecified 02/20/2023,2018,10/20/2016,12/25,11/19/2014,12/11/2013,12/12/2012 ,11/30/2011 Pfizer SARS-CoV-2 Monovalent Vaccination (12+ Yrs) PURPLE 05/27/2021,10/10/2020,06/05/2020 Pneumococcal Conjugate Pcv20 01/01/2022 Pneumococcal Polysaccharide PPV23 11/11/2019 RSV Vaccine, Pref, Recombina nt, Subunit, Adjuvanted, PF, IM (Arexvy) 02/20/2023 Tdap 11/25/2023,11/28/2010 ZOSTER Recombinant 11/03/2018,09/01/2018 Surgical History Surgery Date Site/Laterality Comments CARDIAC CATHETERIZATION 02/25/2021 - 02/24/2022 LUMBAR FUSION HYSTERECTOMY ESOPHAGOGASTRODUODENOSCOPY COLONOSCOPY RECTOCELE REPAIR 02/25/2021 - 02/24/2022 RECTOCELE REPAIR BULKAMID CERVICAL FUSION OTHER SURGICAL HISTORY neuro stimulator for back pain lower mid lumber area COLON SURGERY 1986 SPINE SURGERY 1980 TUBAL LIGATION 04/12/20 KNEE SURGERY 05/14/2023 Left Medical History Medical History Date Comments CAD (coronary artery disease) Dyslipidemia Obesity HTN (hypertension) Hyperlipidemia Stroke (HCC) 2021 no residual TIA BBB (bundle branch block) Sleep apnea GERD (gastroesophageal reflu x disease) Frequent refractory urinary tract infections last with treatment a couple week ago Skin cancer bx on lower back last week OAB (overactive bladder) Chronic pain disorder has neuros timulator present lower mid back Arthritis Cancer (HCC) 06/17/2023 Cataract 05/26/2021 Heart disease Neuromuscular disorder (HCC) 11/26/1995 Autoimmune disease Infection 03/16/2021 Kidney stone Family History Medical History Relation Name Comments Diabetes Brother 1 defects Brother 2 Adam Diabetes Brother 2 Adam Obesity Brother 2 Adam Cancer Brother 3 Adolfo Mental illness Brother 3 Adolfo Cancer Brother 4 Apollo Cancer Brother 5 Ike Developmental delay Brother 5 Ike Heart attack Brother 5 Ike Heart disease Brother 5 Ike Learning disabilities Brother 5 Ike Cancer Brother 6 Kavon Cancer Father Bill Hearing loss Father Bill Arthritis Mother Vanessa Cancer Mother Vanessa Diabetes Mother Vanessa Diabetes Sister 1 Cancer Sister 2 Megan Diabetes Sister 2 Megan Heart attack Sister 2 Megan Heart disease Sister 2 Megan Hypertension Sister 3 Megan sister Obesity Sister 3 Megan sister Obesity Sister 4 Samantha Relation Name Status Comments Brother 1 Brother 2 Adam Brother 3 Adolfo Brother 4 Apollo Brother 5 Ike Brother 6 Kavon Father Bill Mother Vanessa Sister 1 Sister 2 Megan Sister 3 Megan sister Sister 4 Samantha Social History Tobacco Use Types Packs/Day Years Used Date Smoking Tobacco: Never Smokeless Tobacco: Never Tobacco Cessation:Counseling Given: Not Answered AUDIT-C Answer Date Recorded Q1: How often do you have a drink containing alcohol? Never 05/14/2023 Q2: How many drinks containi ng alcohol do you have on a typical day when you are drinking? Patient does not drink Q3: How often do you have si x or more drinks on one occasion? Never 05/14/2023 PHQ-2 Answer Date Recorded PHQ-2 Total Score (If total score is 3 or more points, staff should administer the PHQ-9) 1 09/10/2023 Personal Safety Answer Date Recorded Have you ever been in or are you currently in a harmful physical or emotional relationship or is someone making you feel afraid or unsafe? Denies 05/14/2023 Comments Unknown Sex and Gender Information Value Date Recorded Sex Assigned at Not on file Legal Sex Female 7:15 PM DBA MANAGER Gender Identity Female 12/01/2020 8:26 PM CDT Sexual Orientation Straight 12/01/2020 8: 26 PM CDT Obstetrics History Last Filed Vital Signs Vital Sign Reading Time Taken Comments Blood Pressure 130/84 03/18/2024 4:18 PM DBA MANAGER Pulse 78 03/18/2024 4:18 PM DBA MANAGER Temperature 36.1 C (97 F) 12/12/2023 1:31 PM CDT Respiratory Rate 18 12/12/2023 1:31 PM CDT Oxygen Saturation 98% 12/12/2023 1:31 PM CDT Inhaled Oxygen Concentration - - Weight 100.2 kg (220 lb 14.4 oz) 03/18/2024 4:18 PM DBA MANAGER Height 165.1 cm (5' 5 ) 03/18/2024 4:18 PM DBA MANAGER Body Mass Index 36.76 03/18/2024 4:18 PM DBA MANAGER Plan of Treatment Health Maintenance Due Date Last Done Comments Breast Cancer Screening-Mammogram 12/11/2023 12/10/2022, 12/10/2022, 12/10/2022, Additional history exists Covid-19 Vaccine (2023-03 5 season) 2024 11/25/2023, 02/20/2023, 05/27/2021, Additional history exists Depression Screening 09/15/2024 09/16/2023, 04/15/19 24 Fall Risk Assessment 09/15/2024 09/16/2023, 05/14/2023, 04/15/2023 Well Visit 65+ 09/15/2024 09/16/2023 Osteoporosis Screening-Bone Density Scan 10/23/2025 10/24/2023, 03/25/2017 Colon Cancer Screening-Colonoscopy 11/25/2025 11/25/2022 DTaP/Tdap/Td Vaccine (3 - Td or Tdap) 11/24/2033 11/25/2023, 11/28/2010 Zoster Vaccine Completed 11/03/2018, 09/01/2018 Pneumococcal vaccine 65+ Completed 01/01/2022, 10/26 Colon Cancer Screening-CT Colonography Discontinued 11/25/2022 Colon Cancer Screening-DNA Stool Discontinued 11/26/19 23 Colon Cancer Screening-FIT Discontinued 11/25/2022 Colon Cancer Screening-Sigmoidoscopy Discontinued 11/25/2022 Influenza Vaccine Completed 11/25/2023, , 02/20/2023, Additional history exists Hepatitis B Screening Completed 12/12/2023 Hepatitis C Screening Completed 12/12/2023 Medical Devices Implanted Type Area Early Education Teacher Device Identifier Shelf Expiration Date Model / Serial / Lot Neurostimula tor-01/22/20 19 Implanted: (Quantity not on file) Neurostimulator Right: Lumbar-Sac ral Spine [employer] [id number] / [id number] / Other - See Comments Other - see comments Bilateral: Other - see comments Description:Bars and screws in lumbar spine and cervical spine Angio-Seal Vip 6fr Closere Device [id number] - [id number] Implanted:Qt y: 1 on 07/31/2021 by Tristen Bell MD at [facility] 04/24/2022 [id number] / / [id number] Procedures Procedure Name Priority Date/Time Associated Diagnosis Comments LIPID PANEL Routine 04/01/2024 8:49 AM DBA MANAGER LIPID PANEL Routine 04/01/2024 Non-occlusive coronary artery disease Mixed hyperlipidemia Essential hypertension, benign Ectopic beats HOLTER MONITOR 48 HR Routine 03/30/2024 11:10 AM DBA MANAGER Non-occlusive coronary artery disease Ectopic beats Ectopic atrial beats COMPREHENSIVE METABOLIC PANEL Routine 03/13/2024 Non-occlusive coronary artery disease Mixed hyperlipidemia Essential hypertension, benign HEPATITIS C ANTIBODY Routine 12/12/2023 2:15 PM CDT Need for hepatitis C screening test DEXA AXIAL SKELETON BONE DENSITY 1 OR MORE SITES Schedule Routine, Read Routine (OP Routine) 10/24/2023 3:38 PM CDT Postmenopausal SCREENING MAMMOGRAM BILATERAL W MITCHELL Schedule Routine, Read Routine (OP Routine) 12/10/2022 COLONOSCOPY Routine 11/25/2022 from Last 3 Months or Most Recently Relevant to Health Maintenance Results * Lipid panel (04/01/2024 8:49 AM DBA MANAGER) Blood Historical Provider LAB BLOOD ORDERABLES Kala l Result * Lipid panel (04/01/2024) SCRIBED Cholesterol, Total 124 l - h EXTERNAL LAB SCRIBED HDL 45 l - h EXTERNAL LAB SCRIBED LDL 59 l - h EXTERNAL LAB SCRIBED Triglycerides 99 l - h EXTERNAL LAB Blood 04/01/2024 us Tristen Bell MD LAB BLOOD ORDERABLES Final Result EXTERNAL LAB * 48 HR Holter Monitor (03/30/2024 11:10 AM DBA MANAGER) Anatomical Region Laterality Modality Ultrasound Narrative 04/03/2024 4:41 PM DBA MANAGER Patient Id: Juana Collier is a 68 y.o. female. MR#: [id number] Date of the procedure: March 30, 2024 Diagnosis: Palpitations Findings: 48 hour Holter done on the 30 March 2024 showed sinus rhythm. Heart rate varies from 52 beats per minute to 99 beats per minute. Average heart rate is 67 beats per minute. Rhythm is bradycardia for 11% of the time and tachycardic for less than 1% of the time. There are 10 PVCs which accounted for less than 1% of total number of beats. There were 34 PACS which accounted for less than 1% of total number of beats. During minimum and maximum heart rate rhythm is sinus rhythm and maximum RR interval is 1.5 seconds after a PVC. A 4 beat run of SVT noted. No ventricular tachycardia noted. No atrial fibrillation noted. Patient triggered the monitor once but no symptoms reported and at that time rhythm is sinus rhythm Copy to Art Schofield DO 04/03/2024 us Tristen Bell MD [facility] PROCEDU RES Final Result * Comprehensive metabolic panel (03/13/2024) SCRIBED Sodium 137 l - h mmol/L EXTERNAL LAB SCRIBED Potassium 4.0 l - h mmol/L EXTERNAL LAB SCRIBED Chloride 108 l - h mmol/L EXTERNAL LAB SCRIBED Carbon Dioxide 24.7 l - h mmol/L EXTERNAL LAB SCRIBED Urea Nitrogen (BUN) 14 l - h mg/dl EXTERNAL LAB SCRIBED Creatinine 0.90 l - h mg/dl EXTERNAL LAB SCRIBED Glucose 150 l - h mg/dl EXTERNAL LAB SCRIBED Calcium 9.2 l - h mg/dl EXTERNAL LAB SCRIBED Bilirubin 0.9 l - h mg/dl EXTERNAL LAB SCRIBED Plasma Protein 7.4 l - h g/dl EXTERNAL LAB SCRIBED Albumin 3.7 l - h g/dl EXTERNAL LAB SCRIBED Alkaline Phosphatase 122 l - h Units/L EXTERNAL LAB SCRIBED Alanine Transaminase (ALT) 22 l - h Units/L EXTERNAL LAB SCRIBED Aspartate Transaminase (AST) 15 l - h Units/L EXTERNAL LAB SCRIBED eGFR in NonAfrican Ugandan 70 l - h EXTERNAL LAB Blood 03/13/2024 Tristen Bell MD LAB BLOOD ORDERABLES Final Result EXTERNAL LAB * Hepatitis C antibody Blood (12/12/2023 2:15 PM CDT) Hep C Ab Nonreactive Nonreactive Comment: Antibodies to HCV not detected. Does NOT exclude the possibility of recent exposure to HCV. Current interpretive data was last revised on 21 Interpretive Data Nonreactive: Antibodies to HCV not detected. Does NOT exclude the possibility of recent exposure to HCV. Equivocal: Equivocal for HCV antibodies. Supplemental molecular testing will be automatically performed to determine infection status in accordance with current CDC screening recommendations. Reactive: Positive for HCV antibodies. This may represent current or past HCV infection. Supplemental molecular testing will be automatically performed to determine current infection status in accordance with current CDC screening recommendations. Interpretive data was last revised on 2019. Blood 12/12/2023 2:15 PM CDT 12/12/2023 6:46 PM CDT us Art Schofield DO LAB MICROBIOLOGY - GEN ERAL ORDERABLES Final Result [facility] [address] Department [place] [address] * Dexa Axial Skeleton Bone Density 1 Or 2 Site (10/24/2023 3:38 PM CDT) Anatomical Region Laterality Modality Body N/A Mammography 10/24/2023 3:52 PM CDT Narrative 10/24/2023 3:55 PM CDT EXAM DESCRIPTION: DEXA AXIAL SKELETON BONE DENSITY 1 OR MORE SITES REASON FOR STUDY: 68 year old postmenopausal white female with given history of: Osteoporosis screening Early Education Teacher/Model: ED01 A (S/N [id number]) CLINICAL INFORMATION: Current height: 64 inches Maximum height: 66 inches Weight: 218.7 pounds Risk factors: Early surgical menopause at age 31. Has taken vitamin-D and hormone replacement therapy. Performs regular weight-bearing exercise. Does not regularly consumes dairy products. Drinks caffeinated beverages. COMPARISON: None available FINDINGS: AP LUMBAR SPINE L1-L3: Total BMD is 1.119 g/cm2 T-score is 0.9 LEFT HIP: Total BMD is 0.838 g/cm2 T-score is -0.9 Femoral neck BMD is 0.856 g/cm2 T-score is 0.1 FRAX: FRAX not reported due to T-scores of hip, femoral neck and/or spine being at or above -1.0 (Normal). IMPRESSION: Normal bone mass. REFERENCE: Bone mineral density: T-Score: Normal (T-score above or = -1.0) Low bone mass (T-score between -1.0 and -2.5) replaces the previously used term osteopenia Osteoporosis (T-score = or below -2.5) Z-Score: Within the expected range for age (Z-score above -2.0) Below the expected range for age (Z-score is -2.0 or below) Please see below follow up recommendations. Medical evaluation for secondary causes of low bone mineral density may be appropriate. FRAX is a World Health Organization validated fracture risk assessment tool that calculates a person's 10 year probability of a major osteoporosis related fracture and hip fracture. According to the National Osteoporosis Foundation guidelines, postmenopausal women and men age 50 or older with low bone mass and a 10 year probability of a major osteoporosis related fracture = or greater than 20% or a 10 year probability of a hip fracture = or greater than 3% should be considered for pharmacological treatment for the prevention of osteoporosis. For further information, including treatment recommendations, please refer to the 2019 ISCD Official Positions (http://www.iscd.org) and the NOF's Clinician's Guide to Prevention and Treatment of Osteoporosis (http://www.nof.org/professionals/clinical-guidelines) THIS IS AN ELECTRONICALLY VERIFIED FINAL REPORT 10/24/2023 3:55 PM - Electronically signed by Kt Muniz M.D. RB: MERLIN Report ID: [id number] Reading Location: [id number] Procedure Note Kt Muniz MD - 10/24/2023 EXAM DESCRIPTION: DEXA AXIAL SKELETON BONE DENSITY 1 OR MORE SITES REASON FOR STUDY: 68 year old postmenopausal white female with given history of: Osteoporosis screening Early Education Teacher/Model: [employer] Horizon A (S/N [id number]) CLINICAL INFORMATION: Current height: 64 inches Maximum height: 66 inches Weight: 218.7 pounds Risk factors: Early surgical menopause at age 31. Has taken vitamin-Dand hormone replacement therapy. Performs regular weight-bearing exercise.Does not regularly consumes dairy products. Drinks caffeinated beverages. COMPARISON: None available FINDINGS: AP LUMBAR SPINE L1-L3: Total BMD is 1.119 g/cm2 T-score is 0.9 LEFT HIP: Total BMD is 0.838 g/cm2 T-score is -0.9 Femoral neck BMD is 0.856 g/cm2 T-score is 0.1 FRAX: FRAX not reported due to T-scores of hip, femoral neck and/or spine beingat or above -1.0 (Normal). IMPRESSION: Normal bone mass. REFERENCE: Bone mineral density: T-Score: Normal (T-score above or = -1.0) Low bone mass (T-score between -1.0 and -2.5) replaces thepreviously used term osteopenia Osteoporosis (T-score = or below -2.5) Z-Score: Within the expected range for age (Z-score above -2.0) Below the expected range for age (Z-score is -2.0 or below) Please see below follow up recommendations. Medical evaluation forsecondary causes of low bone mineral density may be appropriate. FRAX is a World Health Organization validated fracture risk assessmenttool that calculates a person's 10 year probability of a major osteoporosisrelated fracture and hip fracture. According to the National OsteoporosisFoundation guidelines, postmenopausal women and men age 50 or older with low bonemass and a 10 year probability of a major osteoporosis related fracture = or greater than 20% or a 10 year probability of a hip fracture = or greaterthan 3% should be considered for pharmacological treatment for the preventionof osteoporosis. For further information, including treatment recommendations, please referto the 2019 ISCD Official Positions (http://www.iscd.org) and the NOF's Clinician's Guide to Prevention and Treatment of Osteoporosis (http://www.nof.org/professionals/clinical-guidelines) THIS IS AN ELECTRONICALLY VERIFIED FINAL REPORT 10/24/2023 3:55 PM - Electronically signed by Kt Muniz M.D. RB: MERLIN Report ID: [id number] Reading Location: [id number] Art Schofield DO IMG DXA PROCEDURES Fin al Result * Screening Mammogram Bilateral W Mitchell (12/10/2022) Anatomical Region Laterality Modality Breast Bilateral Mammography Historical Provider IMG MAMMO PROCEDURES Kala l Result * Colonoscopy (11/25/2022) Anatomical Region Laterality Modality Other Historical Provider ENDOSCOPY PROCEDURES Kala l Result from Last 3 Months or Most Recently Relevant to Health Maintenance Insurance [employer] Advance Directives For more information, please contact: [phone] Documents on File Type Date Recorded Patient Food Safety Technician Expl anation ADVANCE DIRECTIVE 03/04/2013 12:00 AM POWER OF BLACK J[employer] DEALER FINANCIAL/MEDICAL * Full Code (Latest Code Status on File) Date Activated Date Inactivated Comments 07/31/2021 10:25 AM 07/31/2021 3:55 PM * Full Code Date Activated Date Inactivated Comments 04/09/2021 8:22 PM 04/12/2021 7:30 PM Care Teams Bench Worker Helper Relationship Specialty Start Date End Date Art Schofield DO [address] [place] [address] PCP - General Family Practice 04/09/21 Tristen Bell MD [address] [address] Pulp Drier Cardiology 10/31/18 [place] [address] [place] [address] Consulting Physician Urology 05/07/23 Simon Sampson DO [address] [place] [address] Consulting Physician Orthopedic Surgery 05/14/23
--- OUTSIDE RECORDS SUMMARY | 2024-05-07 13:45 | XMS_ITS | Referral Summary ---
Author Organization [facility] Address [address] [place] [address] Care Team Providers Care Art Framing Manager Name Role Phone Tristen Bell MD Unavailable [phone] Art Schofield DO Primary Care Provider Stephan Henson MD Unavailable Simon Sampson DO Unavailable [phone] Encounters Date Type Department Care Team Description 04/29/2024 Results Follow-Up [facility] [address] [place] [address] [address] Tristen Bell MD 04/08/2024 Orders Only [facility] [address] [place] [phone] ProviderArlene MD 03/30/2024 11:03 AM CARBURIZER - 03/30/2024 11:59 PM CARBURIZER Hospital Encounter [facility] OP Cardiac Testing [address] [place] [id number] Non-occlusive coronary artery disease; Ectopic beats; Ectopic atrial beats Discharge Disposition: Discharge to home or self care 03/18/2024 3:15 PM CARBURIZER Office Visit [facility] [address] [place] [phone] Tristen Bell MD Non-occlusive coronary artery disease (Primary Dx); Mixed hyperlipidemia; Essential hypertension, benign; Ectopic beats; Ectopic atrial beats from Last 3 Months Allergies Active Allergy Reactions Criticality Noted Date [...] (01/16/2023): Added automatically from request for surgery [id number] KALEB inhibitor intolerance 03/27/2018 Overview (11/04/2018): Secondary [...] stress test Cardiac catheterization in 2009 at [facility] showed 10-20% stenosis involving the mid [...] Fatigue 02/10/2015 04/15/2023 Myocardial ischemia 03/20/2013 04/15/19 Acute cystitis with hematuria 04/15/2023 Palpitations 09/16/2023 Immunizations Immunization Administration Dates Next Due Influenza, [...] (Arexvy) 02/20/2023 Tdap 11/25/2023,11/28/2010 ZOSTER Recombinant 11/03/2018,09/01/2018 Social History Tobacco Use Types Packs/Day Years [...] on file Legal Sex Female 7:15 PM CARBURIZER Gender Identity Female 12/01/2020 8:26 PM CDT Sexual Orientation Straight 12/01/2020 8: 26 PM CDT Last Filed Vital Signs Vital Sign Reading Time Taken Comments Blood Pressure 130/84 03/18/2024 4:18 PM CARBURIZER Pulse 78 03/18/2024 4:18 PM CARBURIZER Temperature 36.1 C (97 F) 12/12/2023 1:31 PM CDT Respiratory Rate 18 12/12/2023 1:31 PM CDT Oxygen Saturation 98% 12/12/2023 1:31 PM CDT Inhaled Oxygen Concentration - - Weight 100.2 kg (220 lb 14.4 oz) 03/18/2024 4:18 PM CARBURIZER Height 165.1 cm (5' 5 ) 03/18/2024 4:18 PM CARBURIZER Body Mass Index 36.76 03/18/2024 4:18 PM CARBURIZER Plan of Treatment Not on file Medical Devices Implanted Type Area Make Up Editor Device Identifier Shelf Expiration Date Model / Serial / Lot Neurostimula tor-01/22/20 19 Implanted: (Quantity not on file) Neurostimulator Right: Lumbar-Sac ral Spine Medtronic [id number] / [id number] / Other - See Comments Other - see comments Bilateral: Other - see comments Description:Bars and screws in lumbar spine and cervical spine Angio-Seal Vip 6fr Closere Device [id number] - [id number] Implanted:Qt y: 1 on 07/31/2021 by Tristen Bell MD at [facility] 04/24/2022 [id number] / / [id number] Procedures Procedure Name Priority Date/Time Associated Diagnosis Comments LIPID PANEL Routine 04/01/2024 8:49 AM CARBURIZER LIPID PANEL Routine 04/01/2024 Non-occlusive coronary artery disease Mixed hyperlipidemia Essential hypertension, benign Ectopic beats HOLTER MONITOR 48 HR Routine 03/30/2024 11:10 AM CARBURIZER Non-occlusive coronary artery disease Ectopic beats Ectopic [...] Results * Lipid panel (04/01/2024 8:49 AM CARBURIZER) Blood Historical Provider LAB BLOOD ORDERABLES Kala [...] 48 HR Holter Monitor (03/30/2024 11:10 AM CARBURIZER) Anatomical Region Laterality Modality Ultrasound Narrative 04/03/2024 4:41 PM CARBURIZER Patient Id: Juana Collier is a 68 y.o. female. MR#: [id number] Date of the procedure: March 30, 2024 [...] rhythm Copy to Art Schofield DO 04/03/2024 Tristen Bell MD CV CARDIAC SERVICES PROCEDU [...] Units/L EXTERNAL LAB SCRIBED eGFR in NonAfrican Tunisian 70 l - h EXTERNAL LAB Blood 03/13/2024 us Ramon V. Kandula MD LAB BLOOD ORDERABLES Final Result EXTERNAL [...] 2:15 PM CDT 12/12/2023 6:46 PM CDT Art Schofield DO LAB MICROBIOLOGY - GEN ERAL ORDERABLES Final Result Performing Organization Address City/[facility]/ZIP Co de Phone Number CHARLEEN [address] [facility] Department [place] [address] * Dexa Axial Skeleton Bone Density 1 Or 2 Site (10/24/2023 3:38 PM CDT) Anatomical Region Laterality Modality Body N/A Mammography 10/24/2023 3:52 PM CDT Narrative 10/24/2023 3:55 PM CDT EXAM DESCRIPTION: DEXA AXIAL SKELETON BONE DENSITY 1 OR MORE SITES REASON FOR STUDY: 68 year old postmenopausal white female with given history of: Osteoporosis screening Make Up Editor/Model: Codingpeople A (S/N [id number]) CLINICAL INFORMATION: Current height: 64 inches Maximum [...] Kt Muniz M.D. RB: MERLIN Report ID: [id number] Reading Location: [place] [address] Procedure Note Kt Muniz MD - 10/24/2023 EXAM DESCRIPTION: DEXA AXIAL SKELETON BONE DENSITY 1 OR MORE SITES REASON FOR STUDY: 68 year old postmenopausal white female with given history of: Osteoporosis screening Make Up Editor/Model: Codingpeople A (S/N [id number]) CLINICAL INFORMATION: Current height: 64 inches Maximum [...] Kt Muniz M.D. RB: MERLIN Report ID: [id number] Reading Location: [id number] Art Schofield DO IMG DXA PROCEDURES Fin al Result * Screening Mammogram Bilateral W Mitchell (12/10/2022) Anatomical Region Laterality Modality Breast Bilateral Mammography Historical Provider IMG MAMMO PROCEDURES Kala l Result * Colonoscopy (11/25/2022) Anatomical Region Laterality Modality Other Historical Provider ENDOSCOPY PROCEDURES Kala l Result from Last 3 Months or Most Recently Relevant to Health Maintenance Insurance MEDICARE [facility] MEDICARE [facility] Advance Directives For more information, please contact: [phone] Documents on File Type Date Recorded Patient Bag Patcher Expl anation ADVANCE DIRECTIVE 03/04/2013 12:00 AM POWER OF SUPERVISOR FRONT FINANCIAL/MEDICAL * Full Code (Latest Code Status on File) Date Activated Date Inactivated Comments 07/31/2021 10:25 AM 07/31/2021 3:55 PM * Full Code Date Activated Date Inactivated Comments 04/09/2021 8:22 PM 04/12/2021 7:30 PM Care Teams Art Framing Manager Relationship Specialty Start Date End Date Art Shcofield DO [address] [address] PCP - General Family Practice 04/09/21 Tristen Bell MD [address] [address] [address] Cardiology 10/31/18 [place] [address] [place] [address] Consulting Physician Urology 05/07/23 Simon Sampson DO [address] [place] [address] Consulting Physician Orthopedic Surgery 05/14/23
--- OUTSIDE RECORDS SUMMARY | 2024-05-07 13:45 | XMS_ITS | Encounter Summary ---
Author Organization [facility] Address [facility] [place] [address] Care Team Providers Care Dice Dealer Name Role Phone Art Schofield DO Primary Care Provider [phone] Guillermo Henson MD Unavailable [phone] Arabella Alvarez MD, Ramon Unavailable [phone] Miri Howe PA-C Unavailable [phone] Encounter Details Date Type Department Care Team (Latest Contact Info) Description 12/31/2017 Abstract [facility] , Merrick Cortes MD Social History Tobacco Use Types Packs/Day Years Used Date Smoking Tobacco: Never Assessed Comments Unknown Sex and Gender Information Value Date Recorded Sex Assigned at Female 03/13/2024 11:19 AM TRAVEL WRITER Legal Sex Female 5:37 PM CDT Gender Identity Female 03/01/2021 11:51 AM TRAVEL WRITER Sexual Orientation Straight 03/01/2021 11 :51 AM TRAVEL WRITER documented as of this encounter Plan of Treatment Not on file documented as of this encounter Visit Diagnoses Not on filedocumented in this encounter Additional Health Concerns Infection Onset Date Last Indicated Resolved Time COVID-19 Rule Out 11/22/2019 11/22/2019 11/23/2019 8:35 PM CDT COVID-19 Rule Out 04/25/2020 04/25/2020 04/26/2020 9:16 PM TRAVEL WRITER documented as of this encounter Care Teams Dice Dealer Relationship Specialty Start Date End Date Art Schofield DO PCP - General 09/20/15 Gulilermo Henson MD [address] [address] UROLOGY 08/01/22 Tristen Bell MD [address] [address] CARDIOLOGY 08/01/22 Miri Howe, PAMarilynC [address] [phone] Referring Physician PHYSICIAN APPLIANCE TECHNICIAN 11/09/22 documented as of this encounter
--- OUTSIDE RECORDS SUMMARY | 2024-05-07 13:45 | XMS_ITS | Encounter Summary ---
Author Organization [facility] Address [address] [place] [address] Care Team Providers Care School Speech Therapist Name Role Phone Tristen Bell MD Unavailable Art Schofield DO Primary Care Provider Stephan Henson MD Unavailable [phone] Simon Sampson DO Unavailable [phone] Encounter Details Date Type Department Care Team (Late st Contact Info) Description 04/29/2024 Results Follow-Up [facility] Cardiology [address] [facility] [address] [address] Tristen Bell MD [address] [place] [address] Social History Tobacco Use Types Packs/Day Years Used Date Smoking Tobacco: Never Smokeless Tobacco: Never AUDIT-C Answer Date Recorded Q1: How often [...] on file Legal Sex Female 7:15 PM GAS ENGINE OPERATOR COMPRESSORS Gender Identity Female 12/01/2020 8:26 PM CDT Sexual Orientation Straight 12/01/2020 8: 26 PM CDT documented as of this encounter Plan of Treatment Not on file documented as of this encounter Visit Diagnoses Not on filedocumented in this encounter Care Teams School Speech Therapist Relationship Specialty Start Date End Date Art Schofield DO [address] [facility] [address] [place] [address] PCP - General Family Practice 04/09/21 Tristen Bell MD [address] [facility] [facility] [address] [place] [address] Finished Cigar Maker Cardiology 10/31/18 [place] [address] [place] [address] Consulting Physician Urology 05/07/23 Simon Sampson DO [address] [facility] [address] [address] [place] [address] Consulting Physician Orthopedic Surgery 05/14/23 documented as of this encounter
== END 2024-05-07 11:51 | disposition home or self-care (01) ==
LOC: ANHIMG 12:06
PROVIDERS: PCP Family Medicine; Visit Provider Urology
DX: N20.0 Calculus of kidney (principal)
CPT/HCPCS: 74018